=== PATIENT | male | born 1975 | race Caucasian/White ===

== ENCOUNTER 2016-06-30 16:58 | Emergency (ER) | payer SELFPAY ==
--- NOTE | ~2016-06-30 | CR211 ---
[facility] A Service of [facility] RADIOLOGY TEXT RESULTS PATIENT: YUNI ARBOLEDA LOCATION: CFTX : 73 UNIT #: [id number] AGE: [address]: Lamar Lindsay SEX: M ORDER DR: [id number] [facility]. [place], [place] [address] [id number] MR#: [id number] Acc #: [id number] NAME: YUNI ARBOLEDA : 1975 SEX: M STUDY DATE/TIME: 06/30/2016 16:41 UNIT: CFTX ROOM: STUDY DESCRIPTION: CR Ribs Uni 2 View W PA Ch Rt Attending Physician: Lamar Lindsay P.A.-C. Ordering Physician: Lamar Lindsay P.A.-C. Primary Care Physician: No Primary Care Physician MEDICAL IMAGING REPORT This report is preliminary unless electronic signature is present EXAM Right ribs. HISTORY Right rib pain radiating to the mid chest for the past 5 days and secondary to a chronic cough. TECHNIQUE 4 views of the ribs were obtained. FINDINGS The lungs are clear with no pneumothorax. There is a fracture of the right sixth rib laterally. The fracture line is not well seen and there is callus associated with it suggesting that it is in the late stages of healing. There is no evidence of a pathologic fracture. The other ribs are unremarkable. No pleural fluid is seen. IMPRESSION Healing fracture of the right sixth rib laterally. Given the relative obscuration of the fracture line and the amount of callus it appears to be in the late healing stage. No acute rib fractures are seen. No pneumothorax. Dictated by... Toñito Madsen M.D. THIS IS AN ELECTRONICALLY VERIFIED REPORT Toñito Madsen M.D. at 06/30/2016 10:21 PM RLF/rnr TD: 06/30/2016 18:20 JOB #: [id number] [facility] A Service of [facility] RADIOLOGY TEXT RESULTS PATIENT: YUNI ARBOLEDA LOCATION: [place] : 73 UNIT #: [id number] AGE: [address]: Lamar Lindsay SEX: M ORDER DR: MEDICAL IMAGING REPORT Page 1 of 1 COPY
== END 2016-06-30 17:30 | disposition home or self-care (01) ==
LOC: CFTX 16:58
DX: S22.31XA Fracture of one rib, right side, initial encounter for closed fracture (principal); X50.1XXA Overexertion from prolonged static or awkward postures, initial encounter
CPT/HCPCS: 71101; 99283